=== PATIENT | male | born 1945 | race Caucasian/White ===

== ENCOUNTER 2023-11-15 05:40 | Inpatient (IN) | payer MEDICARE ==
[2023-11-15] MEDS ORDERED: Diazepam 5 MG TAB PO SCH (06:45)
[2023-11-15] MEDS ORDERED: Midazolam HCl 2 mg/2 ml Vial ONE (06:58)
[2023-11-15] MEDS ORDERED: Heparin 10,000 UNITS/ 10 ML VIAL ONE (06:58)
[2023-11-15] MEDS ORDERED: Verapamil 5 MG/2 ML VIAL ONE (06:58)
[2023-11-15] MEDS ORDERED: Nitroglycerin 50 MG/250 ML BOT 0 ML ONE (06:58)
[2023-11-15] MEDS ORDERED: Adenosine 6 mg (2 mL) VIAL ONE (06:58)
[2023-11-15] MEDS ORDERED: fentaNYL 50 mcg/mL 1 mL Vial ONE (06:58)
[2023-11-15] MEDS ORDERED: Acetaminophen 325 MG TAB PO PRN (08:19)
[2023-11-15] MEDS ORDERED: Senokot S 8.6-50 MG TAB PO PRN (08:19)
[2023-11-15] MEDS ORDERED: Ondansetron PF 4 MG/2 ML Vial IVP PRN (08:19)
[2023-11-15] MEDS ORDERED: Calcium Carbonate 500 MG ChewTAB PO PRN (08:19)
[2023-11-15] MEDS ORDERED: Iopamidol 370 76% 100 ML VIAL ONE (09:16)
[2023-11-15] MEDS: Hydrochlorothiazide 25 MG TAB PO SCH (16:08)
[2023-11-15] MEDS: Atorvastatin Calcium 40 MG TAB PO SCH (16:08)
[2023-11-15] MEDS: Losartan 25 MG TAB PO SCH (16:08)
[2023-11-15] MEDS: Enoxaparin 40 MG (0.4 mL) SYRINGE SC SCH (16:08)
[2023-11-16 04:06] LABS: #Basophils 0.03 10x3/uL (0.0-0.2); %Basophils 0.4 % (0.0-1.0); %Eosinophils 3.4 % (0.0-10.0); %Lymphocytes 20.4 % (21.0-51.0); %Monocytes 12.3 % (0.0-10.0); %Neutrophils 62.7 % (42.0-75.0); Hematocrit 36.9 % (42.0-52.0); Hemoglobin 12.5 g/dL (14.0-18.0); Mean Corpuscular HGB CONC 33.9 g/dL (32.0-36.0); Mean Corpuscular Hemoglobin 30.2 pg (27.0-31.0); Mean Corpuscular Volume 89.1 fL (78.0-98.0); Mean Platelet Volume 10.8 fL (7.4-10.4); Platelet Count 229 10x3/uL (130-400); Red Blood Cell (RBC) Count 4.14 mill/uL (4.70-6.10)
[2023-11-16 04:08] LABS: ALT (SGPT) 40 U/L (8-55); AST (SGOT) 18 U/L (5-34); Albumin 3.4 g/dL (3.4-4.8); Alkaline Phosphatase 63 U/L (40-110); Anion Gap 12 mmol/L (10-20); BUN (Urea Nitrogen) 11 mg/dL (8.4-25.7); Bilirubin, Total 0.4 mg/dL (0.2-1.2); Calc. Creatinine Clearance 90 mL/min (70-130); Calcium 8.5 mg/dL (7.8-10.44); Carbon Dioxide 27 mmol/L (23-31); Cardiac Risk 4.7 (Less than 4.5); Chloride 104 mmol/L (98-107); Cholesterol 141 mg/dl (< 200 Desired); Estimated GFR 88; Glucose 119 mg/dL (83-110); HDL Cholesterol 30 mg/dL (>60 Neg Risk); Potassium 3.5 mmol/L (3.5-5.1); Protein, Total 6.4 g/dL (5.8-8.1); Sodium 139 mmol/L (136-145); Triglycerides 413 mg/dL (Less than 150)
[2023-11-16 04:39] LABS: Hemoglobin A1c 5.2 % (4.0-6.0)
[2023-11-16] MEDS: Aspirin 81 mg Enteric Coated Tablet PO SCH (10:18)
[2023-11-16 18:43] VITALS: BMI 31.3
[2023-11-17 06:35] LABS: Anion Gap 11 mmol/L (10-20); BUN (Urea Nitrogen) 17 mg/dL (8.4-25.7); Calc. Creatinine Clearance 83 mL/min (70-130); Calcium 9.1 mg/dL (7.8-10.44); Carbon Dioxide 28 mmol/L (23-31); Chloride 105 mmol/L (98-107); Estimated GFR 77; Glucose 114 mg/dL (83-110); Potassium 3.7 mmol/L (3.5-5.1); Sodium 140 mmol/L (136-145)
[2023-11-17] MEDS ORDERED: CEFAZOLIN 2 GM in Sodium Chloride 0.9% 100 ML IVPB SCH (22:15)
[2023-11-18 04:37] LABS: Anion Gap 13 mmol/L (10-20); BUN (Urea Nitrogen) 15 mg/dL (8.4-25.7); Calc. Creatinine Clearance 98 mL/min (70-130); Carbon Dioxide 25 mmol/L (23-31); Chloride 105 mmol/L (98-107); Estimated GFR 89; Glucose 111 mg/dL (83-110); Potassium 3.1 mmol/L (3.5-5.1); Sodium 140 mmol/L (136-145)
[2023-11-18 04:42] LABS: Prothrombin Time 13.1 sec (12.0-14.7)
[2023-11-18 04:43] LABS: PTT 33.8 sec (22.9-36.1)
[2023-11-18] MEDS ORDERED: Dexamethasone 4 mg/ml Vial ONE (06:20)
[2023-11-18] MEDS ORDERED: EPINEPHrine 1 MG/ML VIAL ONE (06:20)
[2023-11-18] MEDS ORDERED: PHENYLEPHRINE-NS 100 MCG/ML 10 ML SYRINGE ONE ×2 (06:20→06:58)
[2023-11-18] MEDS ORDERED: Bupivacaine PF 0.5% 30 ML VIAL ONE (06:20)
[2023-11-18] MEDS ORDERED: Albumin 5% 500 ML ONE (06:20)
[2023-11-18] MEDS ORDERED: Lidocaine 1% MPF 2 ML VIAL ONE (06:27)
[2023-11-18] MEDS ORDERED: CEFAZOLIN 2 GM VIAL ONE (06:27)
[2023-11-18] MEDS ORDERED: Sodium Chloride 0.9% 100 ML ONE (06:28)
[2023-11-18] MEDS ORDERED: Heparin 10,000 UNITS/1 ML VIAL 30,000 UNITS in Sodium Chloride 0.9% 1,000 ML FS SCH (06:45)
[2023-11-18] MEDS ORDERED: Etomidate 40 MG (20 mL) VIAL ONE (06:52)
[2023-11-18] MEDS ORDERED: Vecuronium 10 MG VIAL ONE (06:52)
[2023-11-18] MEDS ORDERED: Midazolam HCl 2 mg/2 ml Vial ONE (06:53)
[2023-11-18] MEDS ORDERED: PROPOFOL 20 ML ONE (06:53)
[2023-11-18] MEDS ORDERED: fentaNYL PF 100 MCG/2 ML SYRINGE ONE (06:53)
[2023-11-18] MEDS ORDERED: SUCCINYLCHOLINE/SOD CL,ISO/PF 200 MG/10 ML SYRINGE FS ONE (06:57)
[2023-11-18] MEDS ORDERED: Lidocaine 1% PF 5 ML VIAL ONE (06:57)
[2023-11-18] MEDS ORDERED: Glycopyrrolate 0.2 MG/ML 5 ML SYRINGE ONE (06:58)
[2023-11-18] MEDS ORDERED: Mannitol 12.5 GM/50 ML ONE (07:35)
[2023-11-18] MEDS ORDERED: Lidocaine 2% PF 100 mg/5 ml Syringe ONE (07:35)
[2023-11-18] MEDS ORDERED: Heparin 5,000 UNITS/ML VIAL ONE (07:35)
[2023-11-18] MEDS ORDERED: Protamine Sulfate 250 MG/25 ML VIAL ONE (07:35)
[2023-11-18] MEDS ORDERED: Thrombin 5000 UNITS/5 ML VIAL ONE (07:35)
[2023-11-18] MEDS ORDERED: Potassium Chloride 60 mEq (30 mL) VIAL ONE (07:35)
[2023-11-18] MEDS ORDERED: Cardioplegic Soln 1,000 ML BAG ONE (07:35)
[2023-11-18] MEDS ORDERED: Nitroglycerin 50 MG/250 ML BOT ONE (07:35)
[2023-11-18] MEDS ORDERED: Vancomycin 1 GM VIAL ONE (07:35)
[2023-11-18] MEDS ORDERED: Aminocaproic Acid 5 GM/20 ML VIAL ONE (07:35)
[2023-11-18] MEDS ORDERED: Papaverine 60 MG/2 ML VIAL ONE (07:35)
[2023-11-18] MEDS ORDERED: Magnesium 5 GM/10 ML VIAL ONE (07:35)
[2023-11-18] MEDS ORDERED: Sodium Bicarb 50 mEq/50 ML VIAL ONE (07:35)
[2023-11-18] MEDS ORDERED: Heparin 30,000 units/30 ml VIAL ONE (07:35)
[2023-11-18] MEDS ORDERED: Calcium Chloride 1 GM/10 ML Abboject SYRINGE ONE (07:35)
[2023-11-18] MEDS ORDERED: ePHEDrine Sulfate 50 MG/10 ML VIAL ONE (08:09)
[2023-11-18] MEDS ORDERED: Rocuronium Bromide 10 MG/ML (10ML VIAL) ONE (08:39)
[2023-11-18] MEDS ORDERED: Insulin Regular, Human 100 UNIT/ML 10 ML VIAL ONE (10:09)
[2023-11-18] MEDS ORDERED: fentaNYL 50 mcg/mL 1 mL Vial ONE (11:54)
[2023-11-18] MEDS ORDERED: Guaifenesin DM 100-10/5 ML UDCUP PO PRN (12:02)
[2023-11-18] MEDS ORDERED: fentaNYL 50 mcg/mL 1 mL Vial SLOW IVP PRN (12:02)
[2023-11-18] MEDS ORDERED: Ipratropium/Albuterol 3 ML NEB NEB PRN (12:02)
[2023-11-18] MEDS ORDERED: Bisacodyl 5 MG TAB PO PRN (12:02)
[2023-11-18] MEDS ORDERED: Acetaminophen 325 MG TAB PO PRN (12:02)
[2023-11-18] MEDS ORDERED: Albumin 5% 12.5 GM (250 mL) BOT IVPB PRN (12:02)
[2023-11-18] MEDS ORDERED: traMADol HCl 50 MG TAB PO PRN (12:02)
[2023-11-18] MEDS ORDERED: Mag-Al 1200 mg/1200 mg/30 ML UDCUP PO PRN (12:02)
[2023-11-18] MEDS ORDERED: Bisacodyl 10 MG SUPP PR PRN (12:02)
[2023-11-18] MEDS ORDERED: NOREPINEPHRINE 8 MG/250 ML-D5W 250 ML IVPB PRN (12:02)
[2023-11-18] MEDS ORDERED: hydrALAZINE 20 MG/ML VIAL SLOW IVP PRN (12:02)
[2023-11-18] MEDS: Vancomycin (BATCH) 1.5 GM in Premix 1 BAG IVPB SCH ×2 (12:07→20:30)
[2023-11-18] MEDS ORDERED: Glucagon 1 MG/ML KIT SC PRN (12:15)
[2023-11-18] MEDS ORDERED: Dextrose 50% Abboject 50 ML SYRINGE SLOW IVP PRN (12:15)
[2023-11-18] MEDS ORDERED: Dextrose 5% in Water 1,000 ML IV PRN (12:15)
[2023-11-18 12:26] LABS: ALV-art Gradient 170.975 mmHg (0-20); Base Excess (BEa) -2.7 mEq/L (-2.0 to +3.0); CO2 Tension 37.7 mmHg (35.0-45.0); Calcium, Ionized (arterial) 1.05 mmol/L (1.12-1.30); Carboxyhemoglobin (COHb) 0.8 gm% (0.0-3.0); Hematocrit-ABG 29 % (42.0-52.0); Hemoglobin (Hb) 9.8 g/dL (14.0-18.0); O2 Tension (PaO2), arterial 209.7 mmHg (> 70.0); Potassium - ABG Lab 3.97 mmol/L (3.70-5.30); Puncture Site Arterial Line; pH, Arterial 7.384 (7.35-7.45)
[2023-11-18 12:41] LABS: #Basophils Less than 0.03 10x3/uL (0.0-0.2); %Basophils 0.2 % (0.0-1.0); %Eosinophils 0.7 % (0.0-10.0); %Lymphocytes 11.5 % (21.0-51.0); %Monocytes 6.7 % (0.0-10.0); %Neutrophils 78.6 % (42.0-75.0); Hematocrit 25.9 % (42.0-52.0); Mean Corpuscular HGB CONC 34.7 g/dL (32.0-36.0); Mean Corpuscular Hemoglobin 31.7 pg (27.0-31.0); Mean Corpuscular Volume 91.2 fL (78.0-98.0); Mean Platelet Volume 10.6 fL (7.4-10.4); Platelet Count 157 10x3/uL (130-400); RBC Distribution Width 14.3 % (11.5-14.5); Red Blood Cell (RBC) Count 2.84 mill/uL (4.70-6.10)
[2023-11-18] MEDS: Magnesium 2 GM/50 ML(in water) 2 GM in Premix 1 BAG IVPB SCH (12:43)
[2023-11-18] MEDS: Ketorolac Tromethamine 30 MG (1 mL) VIAL IVP SCH (12:43)
[2023-11-18] MEDS: D5 1/2 NS w/20 mEq KCL 1,000 ML IV SCH (12:44)
[2023-11-18] MEDS: Post-Op Insulin Drip Protocol IVPB ONE (12:44)
[2023-11-18] MEDS: Insulin Regular, Human 100 UNIT/ML 10 ML VIAL SC PRN (12:44)
[2023-11-18] MEDS: fentaNYL 50 mcg/mL 1 mL Vial SLOW IVP PRN (12:49)
[2023-11-18 12:57] LABS: INR-International Normal Ratio 1.4; Prothrombin Time 17.2 sec (12.0-14.7)
[2023-11-18 12:58] LABS: PTT 91.3 sec (22.9-36.1)
[2023-11-18 13:04] LABS: Anion Gap 11 mmol/L (10-20); BUN (Urea Nitrogen) 15 mg/dL (8.4-25.7); Calc. Creatinine Clearance 82 mL/min (70-130); Calcium 7.1 mg/dL (7.8-10.44); Carbon Dioxide 22 mmol/L (23-31); Chloride 112 mmol/L (98-107); Estimated GFR 76; Glucose 162 mg/dL (83-110); Potassium 3.8 mmol/L (3.5-5.1); Sodium 141 mmol/L (136-145)
[2023-11-18] MEDS: Morphine 2 MG/ML VIAL SLOW IVP PRN (13:42)
[2023-11-18] MEDS: CEFAZOLIN 2 GM in Sodium Chloride 0.9% 100 ML IVPB SCH (13:46)
[2023-11-18 14:35] LABS: Actual Bicarbonate (HCO3a) 18.1 mEq/L (22-28); Base Excess (BEa) -3.8 mEq/L (-2.0 to +3.0); Calcium, Ionized (arterial) 1.04 mmol/L (1.12-1.30); Hematocrit-ABG 30 % (42.0-52.0); Hemoglobin (Hb) 10.3 g/dL (14.0-18.0); O2 Tension (PaO2), arterial 142.2 mmHg (> 70.0); Potassium - ABG Lab 4.07 mmol/L (3.70-5.30)
[2023-11-18 14:36] LABS: ALV-art Gradient 113.375 mmHg (0-20); CO2 Tension 23.7 mmHg (35.0-45.0); Puncture Site Arterial Line
[2023-11-18] MEDS: INSULIN REGULAR IN 0.9 % NACL 100 UNITS in Premix 1 BAG IVPB SCH (16:53)
[2023-11-18 18:55] LABS: Hematocrit 29.8 % (42.0-52.0); Hemoglobin 10.1 g/dL (14.0-18.0)
[2023-11-18] MEDS: Famotidine/PF 20 mg/2ml Vial SLOW IVP SCH (20:29)
[2023-11-18 20:49] LABS: Potassium 3.1 mmol/L (3.5-5.1)
[2023-11-18] MEDS: Potassium Chloride 20 MEQ (100 mL) BAG IVPB PRN (22:38)
[2023-11-18] MEDS: Nitroglycerin 50 MG/250 ML BOT 250 ML IVPB PRN (23:11)
[2023-11-19] MEDS: traMADol HCl 50 MG TAB PO PRN (04:34)
[2023-11-19] MEDS: Ondansetron PF 4 MG/2 ML Vial IVP PRN (04:34)
[2023-11-19 05:08] LABS: #Basophils Less than 0.03 10x3/uL (0.0-0.2); #Eosinophils Less than 0.03 10x3/uL (0.0-0.7); %Basophils 0.1 % (0.0-1.0); %Lymphocytes 5.6 % (21.0-51.0); %Monocytes 5.4 % (0.0-10.0); %Neutrophils 88.1 % (42.0-75.0); Hematocrit 28.1 % (42.0-52.0); Hemoglobin 9.3 g/dL (14.0-18.0); Mean Corpuscular HGB CONC 33.1 g/dL (32.0-36.0); Mean Corpuscular Hemoglobin 30.4 pg (27.0-31.0); Mean Corpuscular Volume 91.8 fL (78.0-98.0); Mean Platelet Volume 11.1 fL (7.4-10.4); Platelet Count 180 10x3/uL (130-400); RBC Distribution Width 14.7 % (11.5-14.5); Red Blood Cell (RBC) Count 3.06 mill/uL (4.70-6.10)
[2023-11-19 07:04] LABS: Anion Gap 14 mmol/L (10-20); BUN (Urea Nitrogen) 23 mg/dL (8.4-25.7); Calc. Creatinine Clearance 50 mL/min (70-130); Calcium 8.2 mg/dL (7.8-10.44); Carbon Dioxide 21 mmol/L (23-31); Chloride 112 mmol/L (98-107); Estimated GFR 42; Glucose 170 mg/dL (83-110); Potassium 4.3 mmol/L (3.5-5.1); Sodium 143 mmol/L (136-145)
[2023-11-19] MEDS: Albumin 5% 12.5 GM (250 mL) BOT IVPB PRN (07:09)
[2023-11-19] MEDS: Hetastarch 6% 500 ML 500 ML IVPB SCH (07:09)
[2023-11-19] MEDS ORDERED: Losartan 25 MG TAB PO SCH (09:00)
[2023-11-19] MEDS ORDERED: Hydrochlorothiazide 25 MG TAB PO SCH (09:00)
[2023-11-19] MEDS: Aspirin 325 MG TAB PO SCH (09:02)
[2023-11-19] MEDS: CEFAZOLIN 2 GM in Sodium Chloride 0.9% 100 ML IVPB SCH (09:02)
[2023-11-19] MEDS: Magnesium 2 GM/50 ML(in water) 2 GM in Premix 1 BAG IVPB SCH (09:02)
[2023-11-19] MEDS ORDERED: Insulin Glargine 30 UNITS/0.3 ML VIAL SC PRN (12:07)
[2023-11-19] MEDS: Famotidine/PF 20 mg/2ml Vial SLOW IVP SCH (20:37)
[2023-11-19] MEDS: Atorvastatin Calcium 40 MG TAB PO SCH (20:38)
[2023-11-20 04:45] LABS: #Basophils 0.03 10x3/uL (0.0-0.2); %Basophils 0.2 % (0.0-1.0); %Eosinophils 1.4 % (0.0-10.0); %Lymphocytes 11.4 % (21.0-51.0); %Monocytes 11.2 % (0.0-10.0); %Neutrophils 74.6 % (42.0-75.0); Hematocrit 22.6 % (42.0-52.0); Hemoglobin 7.3 g/dL (14.0-18.0); Mean Corpuscular HGB CONC 32.3 g/dL (32.0-36.0); Mean Corpuscular Hemoglobin 30.5 pg (27.0-31.0); Mean Corpuscular Volume 94.6 fL (78.0-98.0); Platelet Count 157 10x3/uL (130-400); Red Blood Cell (RBC) Count 2.39 mill/uL (4.70-6.10)
[2023-11-20 05:03] LABS: Anion Gap 9 mmol/L (10-20); BUN (Urea Nitrogen) 24 mg/dL (8.4-25.7); Calc. Creatinine Clearance 66 mL/min (70-130); Calcium 7.8 mg/dL (7.8-10.44); Carbon Dioxide 24 mmol/L (23-31); Chloride 113 mmol/L (98-107); Estimated GFR 60; Glucose 127 mg/dL (83-110); Potassium 3.7 mmol/L (3.5-5.1); Sodium 142 mmol/L (136-145)
[2023-11-20] MEDS: Furosemide 40 MG TAB PO SCH (07:34)
[2023-11-20] MEDS: Potassium Chloride 10 MEQ TAB PO SCH (07:34)
[2023-11-20] MEDS: Pantoprazole DR 40 MG TAB PO SCH (07:34)
[2023-11-21 05:13] LABS: #Basophils Less than 0.03 10x3/uL (0.0-0.2); %Basophils 0.1 % (0.0-1.0); %Eosinophils 1.6 % (0.0-10.0); %Lymphocytes 11.9 % (21.0-51.0); %Monocytes 9.4 % (0.0-10.0); %Neutrophils 75.4 % (42.0-75.0); Hematocrit 23.9 % (42.0-52.0); Hemoglobin 7.8 g/dL (14.0-18.0); Mean Corpuscular HGB CONC 32.6 g/dL (32.0-36.0); Mean Corpuscular Hemoglobin 30.5 pg (27.0-31.0); Mean Corpuscular Volume 93.4 fL (78.0-98.0); Mean Platelet Volume 10.8 fL (7.4-10.4); Platelet Count 158 10x3/uL (130-400); Red Blood Cell (RBC) Count 2.56 mill/uL (4.70-6.10)
[2023-11-21 05:30] LABS: Anion Gap 11 mmol/L (10-20); BUN (Urea Nitrogen) 22 mg/dL (8.4-25.7); Calc. Creatinine Clearance 81 mL/min (70-130); Carbon Dioxide 25 mmol/L (23-31); Chloride 111 mmol/L (98-107); Estimated GFR 78; Glucose 116 mg/dL (83-110); Potassium 3.8 mmol/L (3.5-5.1); Sodium 143 mmol/L (136-145)
[2023-11-21] MEDS ORDERED: traMADol HCl 50 MG TAB PO PRN (08:25)
[2023-11-21] MEDS ORDERED: Artificial Tear Ophth Sol 15 ML BOT EA EYE PRN (08:25)
[2023-11-21] MEDS ORDERED: Mineral Oil ENEMA PR PRN (08:25)
[2023-11-21] MEDS ORDERED: diphenhydrAMINE 25 MG CAP PO PRN (08:25)
[2023-11-21] MEDS ORDERED: Milk Of Magnesia 30 ML UDCUP PO PRN (08:25)
[2023-11-21] MEDS ORDERED: Nitroglycerin 0.4 MG TAB (25 Tab Bottle) SL PRN (08:25)
[2023-11-21] MEDS: Potassium Chloride 10 MEQ TAB PO SCH (09:05)
[2023-11-21] MEDS: Furosemide 40 MG TAB PO SCH (09:05)
[2023-11-21] MEDS: Aspirin 325 mg Enteric Coated Tablet PO SCH (09:07)
[2023-11-21] MEDS: traMADol HCl 50 MG TAB PO PRN (18:01)
[2023-11-22 04:10] LABS: #Basophils 0.04 10x3/uL (0.0-0.2); %Basophils 0.3 % (0.0-1.0); %Eosinophils 3.1 % (0.0-10.0); %Lymphocytes 13.5 % (21.0-51.0); %Neutrophils 68.9 % (42.0-75.0); Hematocrit 27.4 % (42.0-52.0); Hemoglobin 8.8 g/dL (14.0-18.0); Mean Corpuscular HGB CONC 32.1 g/dL (32.0-36.0); Mean Corpuscular Hemoglobin 29.9 pg (27.0-31.0); Mean Corpuscular Volume 93.2 fL (78.0-98.0); Mean Platelet Volume 10.5 fL (7.4-10.4); Platelet Count 218 10x3/uL (130-400); RBC Distribution Width 15.7 % (11.5-14.5); Red Blood Cell (RBC) Count 2.94 mill/uL (4.70-6.10)
[2023-11-22] MEDS: Metoprolol Tartrate 25 MG TAB PO SCH (08:43)
[2023-11-22 12:25] VITALS: BP 112/56; TEMP 98.8
== END 2023-11-22 15:43 | disposition home or self-care (01) | DRG 217 ==
LOC: SDC 05:40 → SUATTDRO 05:40 → 2SW 15:05 → CCU 11-18 08:47 → 2NO 11-21 11:11
PROVIDERS: ADMIT Internal Medicine; ATTEND Family Medicine
PROC: 4A023N8 Measurement of Cardiac Sampling and Pressure, Bilateral, Percutaneous Approach (ICD-10-PCS; 2023-11-15)
PROC: B2111ZZ Fluoroscopy of Multiple Coronary Arteries using Low Osmolar Contrast (ICD-10-PCS; 2023-11-15)
PROC: B2151ZZ Fluoroscopy of Left Heart using Low Osmolar Contrast (ICD-10-PCS; 2023-11-15)
PROC: 02RF08Z Replacement of Aortic Valve with Zooplastic Tissue, Open Approach (ICD-10-PCS; 2023-11-18)
PROC: 02100Z9 Bypass Coronary Artery, One Artery from Left Internal Mammary, Open Approach (ICD-10-PCS; 2023-11-18)
PROC: 021209W Bypass Coronary Artery, Three Arteries from Aorta with Autologous Venous Tissue, Open Approach (ICD-10-PCS; 2023-11-18)
PROC: 06BQ4ZZ Excision of Left Saphenous Vein, Percutaneous Endoscopic Approach (ICD-10-PCS; 2023-11-18)
PROC: 5A1221Z Performance of Cardiac Output, Continuous (ICD-10-PCS; 2023-11-18)
PROC: 02L70ZK Occlusion of Left Atrial Appendage, Open Approach (ICD-10-PCS; 2023-11-18)
PROC: 4A133R1 Monitoring of Arterial Saturation, Peripheral, Percutaneous Approach (ICD-10-PCS; 2023-11-18)
PROC: 3E033XZ Introduction of Vasopressor into Peripheral Vein, Percutaneous Approach (ICD-10-PCS; 2023-11-18)
PROC: 30233J1 Transfusion of Nonautologous Serum Albumin into Peripheral Vein, Percutaneous Approach (ICD-10-PCS; 2023-11-18)
PROC: 30233N1 Transfusion of Nonautologous Red Blood Cells into Peripheral Vein, Percutaneous Approach (ICD-10-PCS; principal; 2023-11-20)
DX: I35.0 Nonrheumatic aortic (valve) stenosis (principal); D62 Acute posthemorrhagic anemia; I25.10 Atherosclerotic heart disease of native coronary artery without angina pectoris; I10 Essential (primary) hypertension; E78.5 Hyperlipidemia, unspecified; Z79.899 Other long term (current) drug therapy
CPT/HCPCS: 36415; 36416; 36430; 71045; 71250; 75630; 80048; 80053; 80061; 82805; 83036; 85025; 85610; 85730; 86850; 86900; 86901; 93005; 93010; 93306; 93460; 93798; 94002; 97139; 99152; 99153; A4311; A4648; C1713; C1751; C1769; C1776; C1889; C1894; J0153; J0171; J0665; J1100; J1642; J1644; J1650; J1815; J1885; J2001; J2150; J2250; J2272; J2405; J2440; J2704; J2720; J3010; J3370; J3475; J3480; J3490; P9016; P9045; Q9967; S0017